=== PATIENT | male | born 1930 | race Caucasian/White ===

== ENCOUNTER 2016-05-01 13:40 | Day surgery (SDC) | payer MEDICARE, BC ==
[2016-05-01] MEDS ORDERED: TRIAMCINOLONE ACETONIDE 40 MG/ML SUS ONE (14:30)
[2016-05-01] MEDS ORDERED: BUPIVACAINE HCL 0.5% MPF 10 ML SOL ONE (14:31)
[2016-05-01 15:01] VITALS: BP 145/70; PULSE 72; RESP 20; O2SAT 90
== END 2016-05-01 15:28 | disposition home or self-care (01) | DRG 552 ==
LOC: SURG 13:40
PROVIDERS: ATTEND Nurse Anesthetist, Certified Registered
DX: M53.3 Sacrococcygeal disorders, not elsewhere classified (principal)
CPT/HCPCS: G0260; J3300

== ENCOUNTER 2016-10-16 13:02 | Day surgery (SDC) | payer MEDICARE, BC ==
[2016-10-16] MEDS ORDERED: BUPIVACAINE HCL 0.5% MPF 10 ML SOL ONE (13:50)
[2016-10-16] MEDS: TRIAMCINOLONE ACETONIDE 40 MG/ML SUS ONE ×2 (14:02→14:08)
[2016-10-16 14:34] VITALS: RESP 20; TEMP 97.5
[2016-10-16 14:55] VITALS: O2SAT 95
[2016-10-16 15:20] VITALS: BP 234/103; PULSE 78
== END 2016-10-16 15:30 | disposition other institution (70) | DRG 552 ==
LOC: SURG 13:02
PROVIDERS: ATTEND Nurse Anesthetist, Certified Registered
DX: M53.3 Sacrococcygeal disorders, not elsewhere classified (principal); M12.88 Other specific arthropathies, not elsewhere classified, other specified site
CPT/HCPCS: G0260; J3300